=== PATIENT | female | born 2000 | race Caucasian/White ===

== ENCOUNTER 2022-08-17 17:30 | Emergency (ER) | payer MEDICAID ==
[~2022-08-17] VITALS: Ht 172.7 cm; Wt 93.0 kg
[2022-08-17 17:33] VITALS: BP 122/64
[2022-08-17] MEDS ORDERED: sulfamethoxazole/trimethoprim DS (800/160mg) tablet PO ONE (19:45)
[2022-08-17] MEDS ORDERED: SULF1TAB45 PO (19:46)
== END 2022-08-17 19:57 | disposition home or self-care (01) ==
LOC: ER 17:31
DX: L02.411 Cutaneous abscess of right axilla (principal); Z79.899 Other long term (current) drug therapy
CPT/HCPCS: 99283

== ENCOUNTER 2023-01-08 17:28 | Emergency (ER) | payer MEDICAID ==
[~2023-01-08] VITALS: Ht 172.7 cm; Wt 95.4 kg
[2023-01-08 17:34] VITALS: BP 114/72
[2023-01-08] MEDS ORDERED: CEPH-585 PO (18:34)
[2023-01-08] MEDS ORDERED: PRED20TA PO (18:34)
== END 2023-01-08 19:27 | disposition home or self-care (01) ==
LOC: ER 17:29
DX: L23.9 Allergic contact dermatitis, unspecified cause (principal); Z79.899 Other long term (current) drug therapy
CPT/HCPCS: 99283

== ENCOUNTER 2023-04-01 15:57 | Emergency (ER) | payer MEDICAID ==
[~2023-04-01] VITALS: Ht 170.2 cm; Wt 96.0 kg
[~2023-04-01 15:57] MED LIST: CEPH-585 PO
[2023-04-01 16:02] VITALS: TEMP 98
[2023-04-01 16:50] LABS: BILIRUBIN,URINE NEGATIVE (Neg); CLARITY,URINE CLEAR (Clear); COLOR,URINE YELLOW (Yellow); GLUCOSE, URINE NEGATIVE (Neg); KETONES,URINE NEGATIVE (Neg); LEUKOCYTE ESTERASE ,URINE TRACE (Neg); NITRITES, URINE NEGATIVE (Neg); OCCULT BLOOD,URINE TRACE-INTACT (Neg); PROTEIN,URINE NEGATIVE (Neg); UROBILINOGEN,URINE 0.2 E.U/dL (0.2-1.0)
[2023-04-01 16:51] LABS: UA COLLECTION TYPE CLN CATCH MIDSTREAM; URINE HCG NEGATIVE (NEG)
[2023-04-01 16:54] LABS: BASOPHILS % (AUTO) 0.6 % (0-1); EOSINOPHILS # (AUTO) 0.2 X10'3 (0-0.9); EOSINOPHILS % (AUTO) 2.2 % (0-6); HEMATOCRIT 40.6 % (35.0-45.0); HEMOGLOBIN 13.6 g/dl (12.0-16.0); LYMPHOCYTES # (AUTO) 2.5 X10'3 (1.1-4.8); LYMPHOCYTES % (AUTO) 34.4 % (21-51); MEAN CORPUSCULAR HGB CONC 33.5 g/dL (33.0-36.5); MEAN CORPUSCULAR VOLUME 80.6 FL (78-98); MEAN PLATELET VOLUME 7.7 FL (7.4-10.4); MONOCYTES # (AUTO) 0.6 X10'3 (0-0.9); NEUTROPHILS % (AUTO) 54.8 % (42-75); PLATELET COUNT 264 X10'3 (140-440); RED BLOOD COUNT 5.04 X10'6 (4.20-5.60); WHITE BLOOD COUNT 7.3 X10'3 (4.5-11.0)
[2023-04-01 16:58] LABS: BACTERIA,URINE FEW /HPF (Neg); MUCUS STRANDS FEW /LPF (Neg); SQUAMOUS EPITHELIAL CELL,UR FEW /LPF (FEW); WBC,URINE 0-4 /HPF (0-4)
[2023-04-01 17:13] LABS: ALANINE AMINOTRANSFERASE 16 U/L (12-78); ALBUMIN 3.7 G/DL (3.4-5.0); ALKALINE PHOSPHATASE 100 IU/L (46-116); ANION GAP 7 (8-16); ASPARTATE AMINO TRANSFERASE 18 U/L (10-37); BILIRUBIN,TOTAL 0.2 MG/DL (0.1-1.0); BLOOD UREA NITROGEN 17 MG/DL (7-18); BUN/CREATININE RATIO 19.3 (10.0-20.0); CALCIUM 8.8 MG/DL (8.5-10.1); CHLORIDE 103 MMOL/L (99-107); CREATININE 0.88 MG/DL (0.40-0.90); GLUCOSE 107 MG/DL (70-104); LIPASE 78 U/L (73-393); POTASSIUM 3.9 MMOL/L (3.5-5.1); SODIUM 139 MMOL/L (135-145); TOTAL CARBON DIOXIDE 28.7 MMOL/L (24-32); TOTAL PROTEIN 7.4 G/DL (6.4-8.2); eCRCL 96 ML/MIN; eGFR 79 ML/MIN
--- NOTE | 2023-04-01 18:06 | NUR ---
PT PRESENTS TO THE ER FOR LEFT SIDED LOWER BACK PAIN. PT STATES SHE THINK SHE HAS BLADDER INFECTION. PT STATES PAIN IS SO PAIN IT WAKES HER UP IN NIGHT. PT STATES PAIN STARTED 2 NIGHTS AGO. PT DENIES BURNING WITH URINATION.
--- NOTE | 2023-04-01 19:10 | NUR ---
AT BEDSIDE WITH PATIENT.
[2023-04-01] MEDS ORDERED: ketorolac trometh inj. 60 MG/2 ML VIAL IM ONE (20:05)
[2023-04-01] MEDS ORDERED: CEFD300C3 PO (20:13)
[2023-04-01 20:21] VITALS: BP 113/71; PULSE 78; RESP 17; O2SAT 100
== END 2023-04-01 20:21 | disposition home or self-care (01) ==
LOC: ER 15:58
DX: N39.0 Urinary tract infection, site not specified (principal); Z79.2 Long term (current) use of antibiotics
CPT/HCPCS: 36415; 80053; 81001; 81025; 83690; 85025; 87077; 87088; 87186; 96372; 99283; J1885